=== PATIENT | female | born 1960 | race Caucasian/White ===

== ENCOUNTER 2022-01-04 22:28 | Emergency (ER) | payer OTHER, SELFPAY ==
[2022-01-04 22:50] VITALS: BP 113/63; PULSE 78; RESP 18; TEMP 36.1; O2SAT 100
--- NOTE | 2022-01-05 00:09 | ED.EXTPRO ---
HPI - Extremity Problem General Chief complaint: Extremity Problem,Nontraumatic Stated complaint: Black toes Time Seen by Provider: 01/04/22 23:49 History of Present Illness HPI Narrative: Patient is a 61-year-old female complaining of discoloration of her right toe x1 month. Patient denies any pain. Patient denies any injury to the area. Patient denies any calf pain or tenderness. Patient denies any fever or chills. Patient is not a diabetic. Patient is a smoker. Related Data Home Medications Medication Instructions Recorded Confirmed alprazolam 1 mg tablet 1 mg PO BID 06/22/21 06/22/21 escitalopram oxalate 20 mg tablet See Rx Instructions .Route .COMPLEX 06/22/21 06/22/21 Allergies Allergy/AdvReac Type Severity Reaction Status Date / Time No Known Allergies Allergy Verified 08/15/21 10:55 Review of Systems Review of Systems: Per HPI All systems reviewed & are unremarkable except as noted in HPI and below PMFSH Past Medical History Medical History Chicken pox Diarrhea History of miscarriage Pneumonia Stomach pain Vomiting Family History Family History Father , 60 Bone cancer Mother , 76 Emphysema lung Cancer Sibling , 65 Blood disease Factor 5 Leiden mutation, heterozygous Social History Social History Social History: Patient does not drink caffeine. 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 [employer] Gender identity (if verbalized by the patient): Female Sexual Orientation (if Verbalized by the Patient): Straight or Heterosexual Exam Const: General: cooperative, healthy appearing, comfortable, no acute distress, well developed, alert and awake; No confusion Orientation/consciousness: oriented to person, oriented to place, oriented to time, patient oriented x3 and No confusion Limitations: no limitations HENMT: Head: normal to inspection, normocephalic and atraumatic Ears: hearing grossly normal bilaterally, TM normal on the right and TM normal on the left General nose exam: Normal external nose present, Normal nares present and No nasal discharge present Face and sinus: normal facial exam Mouth: Yes Normal oral and palatal mucosa present, Yes lip normal, Yes tongue normal and Yes oropharynx normal Throat: posterior oropharynx normal, tonsils normal and uvula midline Eyes: General: appearance normal, both eyes and all related structures Pupils: Equal, round and reactive pupils present EOM: EOMs intact bilaterally Neck: Neck: normal visual inspection, full ROM, no lymphadenopathy and no meningeal signs Chest: Chest palpation & inspection: normal inspection of the chest Resp: Effort & Inspection: normal respiratory effort, able to speak in complete sentences, no respiratory distress and not tachypneic Auscultation: clear to auscultation bilaterally, no crackles, no rales, no rhonchi and no wheezes Cardio: Rate: regular rate Rhythm: regular rhythm GI: Inspection: normal to inspection GI Palp: No abdominal tenderness, Yes Soft to palpation, No Tenderness to palpation present (GI), No Guarding due to palpation present (GI), No Rigid due to palpation and No Rebound tenderness present Auscultation: normal bowel sounds : General: Yes no CVA tenderness Back/Spine/Pelvis: Back: no CVA tenderness Skin: General skin exam: normal color, no rashes or lesions noted, elasticity normal and turgor normal Neuro: General: oriented to person, oriente
== END 2022-01-05 00:25 | disposition home or self-care (01) ==
PROVIDERS: Emergency Provider Emergency Medicine; PCP Emergency Medicine
DX: I73.1 Thromboangiitis obliterans [Buerger's disease] (principal); Z87.01 Personal history of pneumonia (recurrent); F17.210 Nicotine dependence, cigarettes, uncomplicated
CPT/HCPCS: 99281

== ENCOUNTER 2022-01-20 18:38 | Emergency (ER) | payer OTHER, SELFPAY ==
[2022-01-20 18:39] VITALS: BP 132/95; PULSE 91; RESP 16; TEMP 36.6; O2SAT 99
[2022-01-20 18:57] LABS: Basophils Percent Auto 0.4 % (0.2-1.2); Eosinophils Absolute Auto 0.1 K/mm3 (0-0.3); Eosinophils Percent Auto 0.8 % (0-4.4); Hematocrit 43.8 % (37.0-47.0); Hemoglobin 14.6 g/dL (12.0-15.0); Immature Granulocyte Absolute 0.05 K/mm3 (0.00-0.031); Immature Granulocyte Percent A 0.5 % (0-0.5); Lymphocytes Absolute Auto 2.51 K/mm3 (0.9-3.2); Lymphocytes Percent Auto 24.1 % (18.3-44.2); Mean Corpuscular HGB Conc 33.3 g/dl (32-36); Mean Corpuscular Hemoglobin 30.7 pg (26-34); Mean Corpuscular Volume 92.2 fl (80-100); Mean Platelet Volume 9.1 fl (7.4-10.4); Monocytes Absolute Auto 0.7 K/mm3 (0.1-0.6); Monocytes Percent Auto 6.7 % (2.6-8.5); Neutrophils Percent Auto 67.5 % (45.5-73.1); Platelet Count Result 245 k/mm3 (150-375); Red Blood Count 4.75 M/mm3 (4.2-5.4); Red Cell Distribution Width 13.4 % (11.5-14.5); White Blood Count 10.4 K/mm3 (4.5-10.0)
[2022-01-20 19:07] LABS: Alanine Aminotransferase 15 U/L (6-35); Albumin Level 3.8 g/dL (3.5-5.1); Alkaline Phosphatase 80 U/L (38-126); Anion Gap 5 mmol/L (8-16); Aspartate Amino Transferase 19 U/L (14-36); Bilirubin,Total 0.5 mg/dL (0.2-1.3); Blood Urea Nitrogen 13 mg/dL (7-17); Calcium 8.5 mg/dL (8.4-10.2); Carbon Dioxide 24 mmol/L (22-30); Chloride 109 mmol/L (98-107); Estimated CRCL calculation 62 ml/min; Estimated Glomerular Filt Rate > 60; Glucose 108 mg/dL (65-110); Lipase 35 U/L (23-300); Potassium 3.7 mmol/L (3.4-5.0); Sodium 138 mmol/L (137-145)
[2022-01-20 20:57] VITALS: PULSE 90; RESP 15; O2SAT 94
[2022-01-20 21:00] VITALS: PULSE 83; RESP 13; O2SAT 97
--- NOTE | 2022-01-20 21:00 | ED.NAVMDI ---
HPI - Nausea/Vomiting/Diarrhea General Chief complaint: Nausea/Vomiting/Diarrhea Stated complaint: N/V Time Seen by Provider: 01/20/22 20:52 History of Present Illness HPI Narrative: 61-year-old female presents to the emergency room complaints of nausea and vomiting that began this morning. Patient states that emesis has been nonbloody and nonbilious. Patient states that she gets an occasional abdominal cramp prior to vomiting. Also complains of generalized body aches and headache. Denies diarrhea or constipation. Denies fever Related Data Home Medications Medication Instructions Recorded Confirmed alprazolam 1 mg tablet 1 mg PO BID 06/22/21 06/22/21 escitalopram oxalate 20 mg tablet See Rx Instructions .Route .COMPLEX 06/22/21 06/22/21 Allergies Allergy/AdvReac Type Severity Reaction Status Date / Time No Known Allergies Allergy Verified 08/15/21 10:55 Review of Systems Review of Systems: CONSTITUTIONAL: Denies fever, chills, or sweats. EYES: Denies visual changes, redness, or discharge. ENT: Denies rhinorrhea, congestion, sore throat, or otalgia. CARDIOVASCULAR: Denies chest pain, palpitations, or edema. RESPIRATORY: Denies cough or dyspnea. GASTROINTESTINAL: Reports nausea and vomiting GENITOURINARY: Denies dysuria or hematuria. SKIN: Denies rash or itching. MUSCULOSKELETAL: Denies back pain, joint pain, or myalgia. NEUROLOGIC: Denies headache, numbness, dizziness, or weakness. PSYCHIATRIC: Denies anxiety or depression. [facility] Past Medical History Medical History Chicken pox Diarrhea History of miscarriage Pneumonia Stomach pain Vomiting Family History Family History Father , 60 Bone cancer Mother , 76 Emphysema lung Cancer Sibling , 65 Blood disease Factor 5 Leiden mutation, heterozygous Social History Social History Social History: Patient does not drink caffeine. 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 HEAD: Normocephalic, atraumatic. EYES: PERRLA and EOMI. CHEST: Clear to auscultation. No respiratory distress. No wheezes rales or rhonchi HEART: Regular rate and rhythm. No murmur heard. Normal peripheral pulses. ABDOMEN: Soft, nontender, nondistended, normal active bowel sounds. EXTREMITIES: Normal range of motion. No edema. SKIN: Warm, dry, no rash. NEURO: No focal deficits. Alert and oriented x3. PSYCH: Normal mood and affect. Course Vital Signs Vital signs: Vital Signs Temperature 36.6 C 01/20/22 18:39 Pulse Rate 91 01/20/22 18:39 Respiratory Rate 16 01/20/22 18:39 Blood Pressure 132/95 H 01/20/22 18:39 Pulse Oximetry 99 01/20/22 18:39 Oxygen Delivery Room Air 01/20/22 18:39 Temperature 36.6 C 01/20/22 18:39 Pulse Rate 91 01/20/22 18:39 Respiratory Rate 16 01/20/22 18:39 Blood Pressure 132/95 H 01/20/22 18:39 Pulse Oximetry 99 01/20/22 18:39 Oxygen Delivery Room Air 01/20/22 18:39 MDM - Nausea/Vomiting/Diarrhea MDM Narrative Medical decision making narrative: 61-year-old female presented the ER complaints of nausea and vomiting likely secondary to benign infectious cause. No signs of DKA in her labs. CMP normal electrolytes no signs of dehydration or ARIEL.
[2022-01-20 21:02] VITALS: BP 133/66; PULSE 82; RESP 11; O2SAT 96
[2022-01-20] MEDS: DICYCLOMINE HCL INJ 20 MG/2 ML VIAL IM (21:26)
[2022-01-20] MEDS: METOCLOPRAMIDE HCL INJ 10 MG/2 ML VIAL IV PUSH (21:26)
[2022-01-20] MEDS: SODIUM CHLORIDE 0.9% IV 1,000 ML 999 ML IV CONT (21:26)
[2022-01-20] MEDS: diphenhydrAMINE HCl INJ 50 MG/ML VIAL 12.5 MG IV PUSH (21:27)
[2022-01-20 22:00] VITALS: BP 118/74; PULSE 80; RESP 14; TEMP 36.8; O2SAT 98
[2022-01-20 22:13] LABS: Appearance Urine Clear (Clear); Bilirubin Urine 1+ (Negative); Blood Urine 1+ (Negative); Color Urine Yellow (Yellow); Glucose Urine UA Negative (Negative); Ketones Urine 1+ mg/dL (Negative); Leukocyte Esterase Ur Negative LEU/UL (Negative); Nitrate Urine Negative (Negative); Protein Urine Negative (Negative); Urobilinogen Urine 0.2 mg/dL (<2.0); pH Urine 6.5 (5.0-9.0)
[2022-01-20 22:16] LABS: Bacteria Urine Trace /hpf; Mucus Urine Rare /lpf; Squamous Epithelial Cell Urine Few /hpf (Few); WBC Urine 0-3 /hpf
[2022-01-20 22:17] LABS: Add Urine Microscopic? YES
== END 2022-01-20 22:36 | disposition home or self-care (01) ==
PROVIDERS: Emergency Medicine; Emergency Provider Nurse Practitioner Family; PCP Emergency Medicine
DX: K29.70 Gastritis, unspecified, without bleeding (principal); A05.9 Bacterial foodborne intoxication, unspecified; Z87.01 Personal history of pneumonia (recurrent); F17.210 Nicotine dependence, cigarettes, uncomplicated
CPT/HCPCS: 36415; 80053; 81001; 83690; 85025; 96361; 96372; 96374; 96375; 99284; J0500; J1200; J2765; J7030

== ENCOUNTER 2022-02-15 14:49 | Outpatient (CLI) | payer OTHER, SELFPAY ==
--- NOTE | ~2022-02-15 | US_ITS ---
EXAMINATION: US art doppler w press LE BI DATE: 02/15/2022 15:33 INDICATION: Peripheral vascular disease TECHNIQUE: Segmental pressures and plethysmographic and Doppler waveforms of the brachial and lower e xtremity arteries were obtained. COMPARISON: None. FINDINGS: Right and left brachial artery pressures of 144 mm Hg and 140 mm Hg, respectively, are concordant (no rmal difference <= 30 mmHg). The right and left high-thigh pressure indices are 1.19 and 1.15, respec tively (normal > 1.2). The right ankle-brachial index (JAVED) is 1.14 (normal >= 0.9-1). The right great toe-brachial index (T BI) is 0.42 (normal >= 0.6-0.8). The right lower extremity segmental pressure gradients are borderlin e increased between the right dorsalis pedis artery and the right posterior tibial artery (normal gra dients <= 20-30 mmHg between adjacent levels on the same leg or the same levels on the two legs). Art erial waveforms are triphasic at the right common femoral and superficial femoral arteries and biphas ic in the right popliteal, posterior tibial and dorsalis pedis arteries with brisk systolic upstrokes throughout. The left JAVED is 1.10. The left TBI is 0.51. The left lower extremity segmental pressure gradients are borderline increased between the left dorsalis pedis artery and both the left [id number] poplite al artery and left posterior tibial artery. Arterial waveforms are triphasic at the left common femor al and superficial femoral arteries and biphasic in the left popliteal, posterior tibial and dorsalis pedis arteries with brisk systolic upstrokes throughout. IMPRESSION: 1. Mild arterial occlusive disease to the bilateral lower limbs with normal bilateral ABIs but mildly decreased bilateral TBIs. Reviewed, dictated and finalized at location A. IMPRESSION: 1. Mild arterial occlusive disease to the bilateral lower limbs with normal shreyas ateral ABIs but mildly decreased bilateral TBIs.
== END 2022-02-15 14:50 | disposition home or self-care (01) ==
PROVIDERS: PCP Emergency Medicine; Visit Provider Emergency Medicine
DX: I73.9 Peripheral vascular disease, unspecified (principal)
CPT/HCPCS: 93923

== ENCOUNTER 2022-02-22 07:38 | Outpatient (CLI) | payer OTHER, SELFPAY ==
--- NOTE | ~2022-02-22 | CT_ITS ---
EXAMINATION: CT abdomen pelvis w con DATE: 02/22/2022 08:01 INDICATION: Epigastric abdominal pain. Nausea and vomiting. TECHNIQUE: Computed tomography (CT) of the abdomen and pelvis was performed with 100 CC Omnipaque 300 intravenous contrast. Automated exposure control and iterative reconstruction technique were employe d. Exam dose: 588.21 mGy-cm total exam DLP. COMPARISON: 11/29/2018 CT abdomen pelvis FINDINGS: Posterior basilar right lower lobe calcified pulmonary granuloma. The lung bases are clear of infiltrate or consolidation. Normal heart size. No pericardial or pleural effusion. Diffuse hepatic steatosis. No hepatic space-occupying mass lesion. The gallbladder is present. No gal lbladder wall thickening or pericholecystic fluid or fat stranding. No bile duct dilatation. No pancreatic mass lesion, calcification or ductal dilatation. Normal morphology of the right adrenal gland. Asymmetric enlargement of the left adrenal gland which may be due to adrenal hypertrophy and/or small adenoma(s). Approximately 2 cm upper pole right renal cyst. No other renal space occupying mass lesion is detecte d. No urinary tract calculus or hydroureteronephrosis. The urinary bladder is unremarkable. There is atherosclerotic calcification but normal caliber of the abdominal aorta and iliac and femora l arteries. There is a 2.3 x 3 cm left adnexal mass with mixed soft tissue and fat density, likely a dermoid. Otherwise no intraperitoneal or retroperitoneal or pelvic mass lesion or adenopathy or ascites is not ed.. Normal appendix. Mild sigmoid colon diverticulosis; no evidence of diverticulitis. No bowel obstructi on or intraperitoneal free air. Small fat-containing umbilical hernia. Severe degenerative disc disease with mild retrolisthesis at the interspace between the lowermost fun ctional lumbar vertebra and a transitional lumbosacral vertebra. IMPRESSION: Hepatic steatosis Asymmetric left adrenal hypertrophy and/or small adenoma(s) 2 cm right renal cyst 2.3 x 3 cm probable left dermoid Mild sigmoid colon diverticulosis; no evidence of diverticulitis Normal appendix Reviewed, dictated and finalized at [facility]. Reviewed, dictated and finalized at location A.
[2022-02-22 07:54] LABS: Estimated Glomerular Filt Rate > 60
== END 2022-02-22 07:39 | disposition home or self-care (01) ==
PROVIDERS: PCP Emergency Medicine; Visit Provider Emergency Medicine
DX: R10.9 Unspecified abdominal pain (principal); K76.0 Fatty (change of) liver, not elsewhere classified; R93.422 Abnormal radiologic findings on diagnostic imaging of left kidney; N28.1 Cyst of kidney, acquired; K57.90 Diverticulosis of intestine, part unspecified, without perforation or abscess without bleeding
CPT/HCPCS: 74177; Q9967

== ENCOUNTER 2023-08-15 17:45 | Emergency (ER) | payer OTHER, SELFPAY ==
--- NOTE | ~2023-08-15 | XR_ITS ---
EXAMINATION: XR humerus RT DATE: 08/15/2023 19:35 INDICATION: Right upper arm pain. TECHNIQUE: 2 views of right humerus were obtained. COMPARISON: None. FINDINGS: Bone alignment is normal. No fracture. There is mild osteoarthritis of acromioclavicular jeanie int. IMPRESSION: 1. No fracture. Reviewed, dictated and finalized at location E. CTOR OF RESTAURANTS IMPRESSION: 1. No fracture.
--- NOTE | ~2023-08-15 | XR_ITS ---
EXAMINATION: XR hip LT min 2V DATE: 08/15/2023 19:35 INDICATION: Left hip pain. TECHNIQUE: 2 views of left hip were obtained. COMPARISON: None. FINDINGS: Bone alignment is normal. No fracture. There is mild left hip osteoarthritis. IMPRESSION: 1. Mild left hip osteoarthritis. Reviewed, dictated and finalized at location E. ER OPERATOR
--- NOTE | ~2023-08-15 | XR_ITS ---
EXAMINATION: XR forearm RT 2V DATE: 08/15/2023 19:35 INDICATION: Right forearm pain. TECHNIQUE: 2 views of right forearm were obtained. COMPARISON: None. FINDINGS: Bone alignment is normal. No fracture. Joint spaces are normal. There is an enthesophyte at lateral humeral epicondyle. No elbow joint effusion. IMPRESSION: 1. No fracture. Reviewed, dictated and finalized at location E. KING MACHINE OPERATOR IMPRESSION: 1. No fracture.
--- NOTE | ~2023-08-15 | XR_ITS ---
EXAMINATION: XR hand RT min 3V DATE: 08/15/2023 19:35 INDICATION: Right hand pain. TECHNIQUE: 3 views of right hand were obtained. COMPARISON: None. FINDINGS: Bone alignment is normal. No fracture. There is mild osteoarthritis of triscaphe joint and third and fifth distal interphalangeal joints. IMPRESSION: 1. Mild polyarticular osteoarthritis. Reviewed, dictated and finalized at location E. LASS LENS GENERATOR
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
--- NOTE | ~2023-08-15 | XR_ITS ---
EXAMINATION: XR humerus LT DATE: 08/15/2023 19:35 INDICATION: Left upper arm pain. TECHNIQUE: 2 views of left humerus were obtained. COMPARISON: None. FINDINGS: Bone alignment is normal. No fracture. Joint spaces are normal. IMPRESSION: 1. No fracture. Reviewed, dictated and finalized at location E. ODIAL AIDE IMPRESSION: 1. No fracture.
--- NOTE | ~2023-08-15 | CT_ITS ---
EXAMINATION: CT chest abdomen pelvis w con DATE: 08/15/2023 19:48 INDICATION: Chest and abdominal injury. TECHNIQUE: Computed tomography (CT) of the chest, abdomen, and pelvis was performed with 100 mL Omnip aque 350 intravenous contrast. Automated exposure control and iterative reconstruction technique were employed. The dose-length product was 800.93 mGy-cm. COMPARISON: CT abdomen and pelvis 02/22/2022 FINDINGS: CHEST CT: There is mild emphysema. There is mild atelectasis bilaterally. No pleural effusion. The heart size i s normal. No pericardial effusion. There is mild thoracic spondylosis. ABDOMEN/PELVIS CT: The liver is normal. There is a gallstone in the gallbladder, which is normal in size. The spleen, pa ncreas, adrenal glands, and left kidney are normal. There is a 2.0 cm cyst in right kidney. There is calcified atherosclerosis of the aorta and many of the other arteries. There is diverticulosis of the colon without evidence of diverticulitis. The appendix is normal. There are no dilated loops of vania l. There are no pathologically enlarged lymph nodes. There is no free intraperitoneal fluid. There is a 2.7 cm mass in left ovary containing fat, consistent with a dermoid. There is severe lumbar spondy losis. IMPRESSION: 1. No posttraumatic findings. Reviewed, dictated and finalized at location E. WARE ENGINEER INTERN
--- NOTE | ~2023-08-15 | XR_ITS ---
EXAMINATION: XR wrist LT min 3V DATE: 08/15/2023 19:35 INDICATION: Left wrist pain. TECHNIQUE: 4 views of left wrist were obtained. COMPARISON: None. FINDINGS: Bone alignment is normal. No fracture. There is mild osteoarthritis of third metacarpophala ngeal joint and first interphalangeal joint. IMPRESSION: 1. Mild polyarticular osteoarthritis. Reviewed, dictated and finalized at location E. HOOKER
--- NOTE | ~2023-08-15 | CT_ITS ---
EXAMINATION: CT brain wo con DATE: 08/15/2023 19:39 INDICATION: Head injury. TECHNIQUE: Computed tomography (CT) of the head was performed without intravenous contrast. The mA wa s adjusted according to patient size. Iterative reconstruction technique was employed. The dose-lengt h product was 605.33 mGy-cm. COMPARISON: None. FINDINGS: There are scattered areas of low attenuation in the cerebral white matter. There is no intr acranial hemorrhage, acute infarction, or abnormal intracranial mass lesion. The ventricles are lucio l in size. The paranasal sinuses are clear. The mastoid air cells are normal. The orbits are normal. IMPRESSION: 1. Moderate nonspecific cerebral white matter disease, which likely represents chronic small vessel i schemic disease. Reviewed, dictated and finalized at location E. SITIONAL CARE NURSE IMPRESSION: 1. Moderate nonspecific cerebral white matter disease, which likely represents chronic small vessel ischemic disease.
--- NOTE | ~2023-08-15 | XR_ITS ---
EXAMINATION: XR foot RT min 3V DATE: 08/15/2023 19:35 INDICATION: Right foot pain. TECHNIQUE: 4 views of right foot were obtained. COMPARISON: None. 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 There is mild hallux valgus. No fr acture. There is an erosion of the head of fifth metatarsal. There is an enthesophyte at posterior as pect of calcaneal tuberosity. IMPRESSION: 1. Erosions of head of second metatarsal, which may be osteomyelitis or a chronic finding. Comparison with prior imaging is recommended. Reviewed, dictated and finalized at location E. DE SALES IMPRESSION: 1. Erosions of head of second metatarsal, which may be osteomyelitis or a chron ic finding. Comparison with prior imaging is recommended.
[2023-08-15 17:48] VITALS: BP 144/84; PULSE 108; RESP 18; TEMP 36.5; O2SAT 98
--- NOTE | 2023-08-15 18:17 | ECG_ITS ---
Measurements Intervals [place] Rate: 95 P: 61 W[place]: 166 QRS: 22 QRSD: 82 T: 37 QT: 284 QTc: 358 Interpretive Statements SINUS RHYTHM ATRIAL PREMATURE COMPLEXES RSR' IN V1 OR V2, PROBABLY NORMAL VARIANT NONSPECIFIC T-WAVE ABNORMALITY- INF/LAT LEADS BASELINE ARTIFACT- I, III, AVL BORDERLINE ECG COMPARED TO ECG 04/07/2019 11:54:11 NO SIGNIFICANT CHANGES Electronically Signed On 08-15-2023 18:58:08 GRANITE COUNTERTOP INSTALLER by Jae Simpson D.O.
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
[2023-08-15 18:50] LABS: Basophils Percent Auto 0.4 % (0.2-1.2); Eosinophils Percent Auto 0.3 % (0-4.4); Hematocrit 42.9 % (37.0-47.0); Hemoglobin 13.4 g/dL (12.0-15.0); Immature Granulocyte Absolute 0.04 K/mm3 (0.00-0.031); Immature Granulocyte Percent A 0.4 % (0-0.5); Lymphocytes Absolute Auto 1.64 K/mm3 (0.9-3.2); Lymphocytes Percent Auto 17.4 % (18.3-44.2); Mean Corpuscular HGB Conc 31.2 g/dl (32-36); Mean Corpuscular Hemoglobin 29.2 pg (26-34); Mean Corpuscular Volume 93.5 fl (80-100); Mean Platelet Volume 9.4 fl (7.4-10.4); Monocytes Absolute Auto 0.5 K/mm3 (0.1-0.6); Monocytes Percent Auto 4.8 % (2.6-8.5); Neutrophils Absolute Auto 7.2 K/mm3 (1.3-6.7); Neutrophils Percent Auto 76.7 % (45.5-73.1); Platelet Count Result 248 k/mm3 (150-375); Red Blood Count 4.59 M/mm3 (4.2-5.4); Red Cell Distribution Width 14.4 % (11.5-14.5); White Blood Count 9.4 K/mm3 (4.5-10.0)
[2023-08-15 19:19] LABS: Alanine Aminotransferase 17 U/L (6-35); Alkaline Phosphatase 69 U/L (38-126); Anion Gap 7 mmol/L (8-16); Aspartate Amino Transferase 27 U/L (14-36); Bilirubin,Total 0.5 mg/dL (0.2-1.3); Blood Urea Nitrogen 12 mg/dL (7-17); Carbon Dioxide 23 mmol/L (22-30); Chloride 110 mmol/L (98-107); Estimated CRCL calculation 56 ml/min; Estimated Glomerular Filt Rate > 60; Glucose 88 mg/dL (65-110); Potassium 3.9 mmol/L (3.4-5.0); Sodium 140 mmol/L (137-145)
[2023-08-15] MEDS: ACETAMINOPHEN 500 MG TABLET 1000 MG PO (20:49)
[2023-08-15 20:51] VITALS: BP 138/76; PULSE 86; RESP 16; TEMP 36.7; O2SAT 97
== END 2023-08-15 20:52 | disposition home or self-care (01) ==
PROVIDERS: Emergency Provider Physician Assistant; PCP Emergency Medicine
DX: S40.022A Contusion of left upper arm, initial encounter (principal); S40.021A Contusion of right upper arm, initial encounter; S50.11XA Contusion of right forearm, initial encounter; S60.221A Contusion of right hand, initial encounter; S90.31XA Contusion of right foot, initial encounter; S70.02XA Contusion of left hip, initial encounter; S70.12XA Contusion of left thigh, initial encounter; F17.210 Nicotine dependence, cigarettes, uncomplicated; Z87.01 Personal history of pneumonia (recurrent); Z79.02 Long term (current) use of antithrombotics/antiplatelets; I49.1 Atrial premature depolarization; R94.31 Abnormal electrocardiogram [ECG] [EKG]; M19.041 Primary osteoarthritis, right hand; M19.031 Primary osteoarthritis, right wrist; M16.12 Unilateral primary osteoarthritis, left hip; M19.032 Primary osteoarthritis, left wrist; R90.82 White matter disease, unspecified; M47.812 Spondylosis without myelopathy or radiculopathy, cervical region; Y04.2XXA Assault by strike against or bumped into by another person, initial encounter
CPT/HCPCS: 36415; 70450; 71260; 72125; 73060; 73090; 73110; 73130; 73502; 73630; 74177; 80053; 85025; 85610; 85730; 93005; 99284; A9270; Q9967

== ENCOUNTER 2024-10-27 13:32 | Emergency (ER) | payer MEDICARE, MEDICAID, SELFPAY ==
--- NOTE | ~2024-10-27 | XR_ITS ---
XR chest 2V Ordering provider: Mercedes Michele APRN History: 64 years Female with . cough x 5 days HX COPD . Comparison: April 07, 2019 FINDINGS: MEDIASTINUM: The cardiac silhouette is not enlarged. LUNGS: No effusions or pneumothorax. Opacification the left lung bases suggestive of atelectasis vers us pneumonia. OTHER: No free air under the diaphragm. IMPRESSION: Left basal pneumonia. Reviewed, dictated and finalized at location A. IMPRESSION: Left basal pneumonia.
--- NOTE | 2024-10-27 13:42 | ED.URI ---
HPI - URI/Sore Throat General Chief Complaint: Upper Respiratory Infection Stated Complaint: cough Time Seen by Provider: 10/27/24 13:43 Source: patient, RN notes reviewed and old records reviewed Mode of arrival: ambulatory Limitations: no limitations History of Present Illness HPI Narrative: 64-year-old female presents to the [facility] with concerns that she has pneumonia. Patient with a history of COPD. States that she has had 3 day history of cough, shortness of breath. Body aches as well as feeling foggy. Patient reports that she did use her nebulizer last night. No other treatment prior to arrival Onset (ago): day(s) (3) Related Data Home Medications ?Medication ?Instructions ?Recorded ?Confirmed ?Last Taken ?Type alprazolam 1 mg tablet 1 mg PO BID 06/22/21 12/26/23 Unknown History escitalopram oxalate 20 mg tablet See Rx Instructions .Route .COMPLEX 12/26/23 12/26/23 Unknown History famotidine 20 mg tablet 20 mg PO BID 12/26/23 12/26/23 Unknown History omega 6-uqw-ftz-fish oil 120 1 cap PO DAILY 12/26/23 12/26/23 Unknown History mg-180 mg-500 mg capsule (Fish Oil) rosuvastatin 5 mg tablet 5 mg PO DAILY 12/26/23 12/26/23 Unknown History venlafaxine 75 mg tablet 75 mg PO DAILY 12/26/23 12/26/23 Unknown History Allergies Allergy/AdvReac Type Severity Reaction Status Date / Time No Known Allergies Allergy Verified 10/27/24 13:34 Review of Systems Review of Systems: All systems reviewed & are unremarkable except as noted in HPI and below Constitutional: Constitutional: Reports as per HPI, Reports body ache(s), Reports chills and Reports fatigue ENT: Reports system reviewed and no additional complaints, except as documented Cardiovascular: Cardiovascular: Reports no additional cardiovascular complaints, Denies chest pain and Denies dyspnea Respiratory: Respiratory: Reports as per HPI, Denies chest congestion, Reports cough and Reports dyspnea Musculoskeletal: Musculoskeletal: Reports no additional musculoskeletal complaints Integumentary/Breasts: Skin/Breast: Reports system reviewed and no additional complaints, except as docu PMFSH Past Medical History Medical History Stomach pain Vomiting Diarrhea Pneumonia History of miscarriage Chicken pox Family History Family History Father , 60 Bone cancer Mother , 76 Emphysema lung Cancer Sibling , 65 Blood disease Factor 5 Leiden mutation, heterozygous Social History Social History Social History: Patient does not drink caffeine. Smoking packs per day: 1 Smoking cigarettes per day: 20.0 Years smoked: 43 Smoking pack-years: 43.00 Smoking status: Current every day smoker Tobacco type: cigarettes Alcohol intake: never Substance use: never Substance use type: does not use Current Housing: Decline to Answer Concerned About Future Housing: Decline to Answer Difficulty Paying Gas/Electric Bills: Decline to Answer Difficulty Paying for Meds: Decline to Answer Currently Unemployed: Decline to Answer Education: Decline to Answer Difficulty w/ Childcare or Family Care: Decline to Answer Living arrangements: with family Additional living arrangements comments: Occupation/Education: occupation 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 There is no relevant family history pertinent to the patient complaint. Exam Const: General: cooperative, healthy appearing, comfortable, no acute distress, well developed, alert and well nourished Nutritional Appearance: well nourished Orientation/consciousness: patient oriented x3 Limitations: no limitations HENMT: Head: normal to inspection Ears: hearing grossly normal bilaterally, external ears normal, TM's normal bilaterally, EAC's normal, mastoids normal and no periauricular adenopathy Mouth: Yes Normal oral and palatal mucosa present, Yes lip normal, Yes tongue normal and Yes moist mucous membranes Throat: posterior oropharynx normal, uvula midline and no uvular edema Eyes: General: appearance normal, both eyes and all related structures Alignment and Position: alignment normal Neck: Neck: normal visual inspection, full ROM, no lymphadenopathy and no meningeal signs Chest: Chest palpation & inspection: normal inspection of the chest Resp: Effort & Inspection: normal respiratory effort and able to speak in complete sentences Auscultation: no crackles, no rales, no rhonchi and wheezes expiratory wheezes and scattered wheezes Cardio: Rate: regular rate Skin: General skin exam: normal color and no rashes or lesions noted Neuro: General: patient oriented x3, gait normal, moves all extremities and no meningeal signs Cognition (Neuro): normal cognition Speech: normal speech Gait exam (Neuro): Normal gait present Extrem: General: normal to inspection, full ROM, capillary refill normal and normal gait Psych: Appearance: grossly normal and well kempt Mental Status: mental status grossly normal Speech and movement: Normal speech and movement present and Clear speech present Affect: normal affect Attitude: cooperative Course Course Level of Care: Express Care Visit Vital Signs Vital signs: Vital Signs Temperature 98.0 F 10/27/24 13:46 Pulse Rate 99 10/27/24 13:46 Respiratory Rate 20 10/27/24 13:46 Blood Pressure 103/52 L 10/27/24 13:46 Pulse Oximetry 95 10/27/24 13:46 Oxygen Delivery Room Air 10/27/24 13:46 Temperature 98.0 F 10/27/24 13:46 Pulse Rate 108 H 10/27/24 14:18 Respiratory Rate 20 10/27/24 14:18 Blood Pressure 103/52 L 10/27/24 13:46 Pulse Oximetry 95 10/27/24 14:18 Oxygen Delivery Room Air 10/27/24 13:46 Reviewed MDM - URI/Sore Throat MDM Narrative Medical decision making narrative: Patient presents to the [facility] with concerns for pneumonia. Patient's x-ray does show pneumonia. Patient has a history of COPD. Discussed in great detail signs and symptoms to proceed to the emergency room versus treatment. Will prescribe both azithromycin and Augmentin. Encouraged patient to use her nebulizer every 4-5 hours and if she is having trouble catching her breath or develops chest pain she needs to go the emergency room. Patient verbalized understanding Discharge instructions reviewed with patient, as well as provided in writing per nursing staff. The instructions also include specific and strict return/GO TO THE ER as well as f/u information. All questions have been answered, and the patient deny any further questions with discharge and discharge plan. Some parts of this dictation were generated by voice recognition software and may contain typographical and/or grammatical inaccuracies. Differential Diagnosis Differential diagnosis: Likely upper respiratory infection, otitis media, sinusitis, viral infection, bronchitis, influenza and pharyngitis Lab Data Labs: Lab Results 10/27/24 Range/Units 14:08 POC Influenza A Ag Negative (Negative) POC Influenza B Ag Negative (Negative) POC SARS CoV-2 Ag Negative (Negative) Reviewed Imaging Data Radiologist's impression: XR chest 2V Ordering provider: Mercedes Michele APRN History: 64 years Female with . cough x 5 days HX COPD . Comparison: April 07, 2019 FINDINGS: MEDIASTINUM: The cardiac silhouette is not enlarged. LUNGS: No effusions or pneumothorax. Opacification the left lung bases suggestive of atelectasis versus pneumonia. OTHER: No free air under the diaphragm. IMPRESSION: Left basal pneumonia. Critical Care Time Critical Care Time Critical Care Time: No Discharge Plan Discharge Clinical Impression: History of COPD Pneumonia involving left lung Qualifiers: Pneumonia type: due to unspecified organism Patient Disposition: Home, Self-Care Condition: Stable Instructions: COPD (Chronic Obstructive Pulmonary Disease) (DC), Community Acquired Pneumonia (DC) Additional Instructions: Stop smoking Use your nebulizer every 4-5 hours while awake Take antibiotics as prescribed Follow-up with your primary care provider this week For new or worsening symptoms go directly to the nearest emergency room. If you develop chest pain or significant shortness of breath please call 911 and get to emergency room Patient Language: Ukrainian Prescriptions: New azithromycin 250 mg tablet See Rx Instructions PO .COMPLEX Qty: 6 0RF Rx Instructions: take 500 mg today (day 1), then 250 mg for 4 days (days 2-5) amoxicillin-pot clavulanate 875-125 mg tablet 1 tablet PO Q12H Qty: 20 0RF No Action alprazolam 1 mg tablet 1 mg PO BID escitalopram oxalate 20 mg tablet See Rx Instructions .ROUTE .COMPLEX Rx Instructions: TAKE 1 TABLET PO ONCE DAILY; famotidine 20 mg tablet 20 mg PO BID venlafaxine 75 mg tablet 75 mg PO DAILY rosuvastatin 5 mg tablet 5 mg PO DAILY Fish Oil 120-180-500 mg capsule 1 cap PO DAILY cyclobenzaprine 5 mg tablet 5 mg PO TID PRN (Reason: muscle spasm) Qty: 20 0RF pregabalin [Lyrica] 75 mg capsule 75 mg PO DAILY Qty: 30 2RF Follow-up/Referrals: PHYSICIAN,DIRECTOR NURSES' REGISTRY [Primary Care Provider] - Time of Disposition: 14:19
[2024-10-27 13:46] VITALS: BP 103/52; PULSE 99; RESP 20; TEMP 36.7; O2SAT 95
[2024-10-27] MEDS: IPRATROPIUM BR 0.02% INH SOLN 0.5 MG/2.5 ML VIAL INHALATION (13:58)
[2024-10-27] MEDS: ALBUTEROL SULFATE NEB 2.5 MG/3 ML INH INHALATION (13:59)
[2024-10-27 14:02] VITALS: PULSE 99; RESP 20; O2SAT 95
[2024-10-27 14:09] LABS: EDCOVIDSCREEN Negative (Negative); EDINFLUASCREEN Negative (Negative); EDINFLUBSCREEN Negative (Negative)
[2024-10-27 14:18] VITALS: PULSE 108; RESP 20; O2SAT 95
--- OUTSIDE RECORDS SUMMARY | 2024-10-27 16:08 | XMS_ITS | Clinical Summary ---
Author Organization [facility] Address [address] [place] [address] Care Team Providers Care Cell Maker Name Role Phone Nash Rosa MD Primary Care Provider [phone] Yojana VaughnNP Unavailable [phone] Surendra Ponce MD Unavailable Allergies No known active allergies Medications ondansetron 4 MG disintegrating tablet Take 1 tablet (4 mg total) by mouth every 8 (eight) hours as needed for Nausea. 20 tablet 03/24/20 21 Active clopidogrel (PLAVIX) 75 MG tablet Take 1 tablet (75 mg total) by mouth daily. 02/19/20 24 Active escitalopram (LEXAPRO) 20 MG tablet Take 1 tablet (20 mg total) by mouth daily. 02/20/20 24 Active meloxicam (MOBIC) 15 MG tablet Take 1 tablet (15 mg total) by mouth daily. 02/26/20 24 Active venlafaxine (EFFEXOR) 75 MG tablet Take 1 tablet (75 mg total) by mouth daily. 02/19/20 24 Active famotidine (PEPCID) 20 MG tablet Take 1 tablet (20 mg total) by mouth 2 (two) times daily. 02/19/20 24 Active rosuvastatin (CRESTOR) 5 MG tablet Take 1 tablet (5 mg total) by mouth daily. 02/26/20 24 Active ALPRAZolam (XANAX) 1 MG tablet Take 1 tablet (1 mg total) by mouth 2 (two) times daily as needed. 02/12/20 24 Active albuterol (ACCUNEB) 1.25 MG/3ML nebulizer solution Take 3 mLs (1.25 mg total) by nebulization every 6 (six) hours as needed for Wheezing. 720 mL 07/22/20 24 Active Social History Tobacco Use Types Packs/Day Years Used Date Smoking Tobacco: Every Day Cigarettes 1 57.2 Started: 1968 Smokeless Tobacco: Never Tobacco Cessation:Ready to Q uit: Not Asked; Counseling Given: Not Answered Alcohol Use Standard Drinks/Week Comments Not Currently 0 (1 standard drink = 0.6 oz pur e alcohol) Comments No Sex and Gender Information Value Date Recorded Sex Assigned at Not on file Legal Sex Female 5:04 PM CDT Gender Identity Not on file Sexual Orientation Not on file Last Filed Vital Signs Vital Sign Reading Time Taken Comments Blood Pressure 144/72 07/21/2024 10:22 PM CUPOLA TENDER Pulse 72 07/21/2024 10:22 PM CUPOLA TENDER Temperature 37.1 C (98.7 F) 07/21/2024 10:22 PM CUPOLA TENDER Respiratory Rate 18 07/21/2024 10:22 PM CUPOLA TENDER Oxygen Saturation 100% 07/21/2024 10:22 PM CUPOLA TENDER Inhaled Oxygen Concentration - - Weight 69.9 kg (154 lb) 07/21/2024 8:03 PM CUPOLA TENDER Height 170.2 cm (5' 7 ) 07/21/2024 8:03 PM CUPOLA TENDER Body Mass Index 24.12 07/21/2024 8:03 PM CUPOLA TENDER Plan of Treatment Health Maintenance Due Date Last Done Comments Colorectal Cancer Screening Colonoscopy (10 Years) 1959 Pneumococcal Vaccine: 65+ Ye ars (1 of 2 - PCV) 1965 Pneumococcal Vaccine: Pediat rics (0 to 5 Years) and At-Risk Patients (6 to 64 Years) (1 of 2 - PCV) 1965 Hepatitis C 1977 DTaP, Tdap and Td Vaccines ( 1 - Tdap) 1978 Mammogram Screening 1999 Lung Cancer Screening 2009 Zoster Vaccines (1 of 2) 2009 COVID-19 Vaccine ( - 2023-2 5 season) 2024 Influenza Adult (#1) 2024 Dexa Scan (General) 2024 RSV Immunization or 60+ Years (1 - 1-dose 75+ series) 2034 Meningococcal B Vaccine Aged Out No l onger eligible based on patient's age to complete this topic Meningococcal Vaccine Aged Out No elia cristela eligible based on patient's age to complete this topic RSV Immunizations Under 20 Months Aged Out No longer eligible based on patient's age to complete this topic Insurance [place] Care Teams Cell Maker Relationship Specialty Start Date End Date Nash Rosa MD [address] [place] [address] PCP - General INTERNAL MEDICINE 03/09/24 Yojana Vaughn APNP [address] [place] [address] NURSE PRACTITIONER 03/09/24 Surendra Ponce MD [address] [facility] [address] [place] [id number] VASCULAR SURGERY 03/09/24
--- OUTSIDE RECORDS SUMMARY | 2024-10-27 16:08 | XMS_ITS | Clinical Summary ---
Author Organization [facility] [address] Address [address] [place] [id number] Care Team Providers Care Lease Picker Name Role Phone Nash Rosa MD Primary Care Provide r Allergies Active Allergy Reactions Criticality Noted Date Comments Tramadol Itching Low 02/22/2022 Vancomycin Itching Low 03/08/2022 Medications ALPRAZolam (XANAX) 1 mg tablet Take 1 tablet (1 mg total) by mouth 2 (two) times a day as needed 02/02/20 Active escitalopram (LEXAPRO) 20 mg tablet Take 20 mg by mouth daily 12/04/19 22 Active ondansetron ODT (ZOFRAN-ODT) 4 mg disintegrating tablet 01/22/20 Active aspirin 81 mg enteric coated tablet Take 1 tablet (81 mg total) by mouth daily Active naloxone (NARCAN) 4 mg/actuation spray,non-aerosol Administer 1 spray into affected nostril(s) as needed for opioid reversal or respiratory depression Call 911. Administer a single spray in one nostril. Repeat every 3 minutes as needed if no or minimal response. 1 each 03/02/20 Active Additional Information Patient not taking.Reported on 06/27/2022 sucralfate (CARAFATE) 1 gram tablet Take 1 tablet (1 g total) by mouth 4 (four) times a day (with meals and nightly) 120 tablet 03/11/[address] (PROTONIX) 40 mg EC tablet Take 1 tablet (40 mg total) by mouth 2 (two) times a day 60 tablet 03/11/20 22 Active HYDROcodone-acetam inophen (NORCO) 5-325 mg per tabletIndications: Pain Take 2 tablets by mouth every 6 (six) hours as needed for pain 30 tablet 03/15/20 22 Active Additional Information Patient not taking.Reported on 06/27/2022 clopidogreL (PLAVIX) 75 mg tablet Take 1 tablet (75 mg total) by mouth daily 90 tablet 3 09/14/19 23 Active venlafaxine (EFFEXOR) 75 mg tablet Take 1 tablet (75 mg total) by mouth daily 02/10/20 23 Active Active Problems Problem Noted Date Diagnosed Date Venous congestion 06/28/2022 Assessment & Plan (02/20/2023 12:07 PM CDT): Impression: Patient complains of discoloration to the right 1st and 3rd toes. Discoloration occurs by lower extremities are in dependent position and returns to pink in color when legs are elevated. Patient denies any pain to her feet or toes. Right 2nd toe amputation site remains healed. Plan: No surgical interventions are needed. Patient to follow-up as needed. Assessment & Plan (06/28/2022 2:42 PM SUPERVISOR COAL HANDLING): Impression: Patient complains of discoloration to right 3rd toe. Bilateral ABIs to lower extremities are normal with triphasic waveforms. Discoloration occurs while lower extremities are in dependent position and return to pink in color when legs are elevated. Plan: No surgical intervention are needed. Mild malnutrition 03/08/2022 Gangrene of toe 03/07/2022 PAD (peripheral artery disease) 02/21/2022 Assessment & Plan (06/28/2022 2:41 PM SUPERVISOR COAL HANDLING): Impression: Patient complains of discoloration to her right 3rd toe as she voices concern as this was the symptoms she experiencing with her 2nd toe prior to her amputation. Patient denies any pain. Bilateral ABIs reveals triphasic waveforms. Patient reports compliance with taking dual anti-platelet therapy. Bilateral lower extremities are warm with palpable distal pulses. Plan: No concern for arterial issues as she has normal JAVED's. Discoloration is likely secondary to venous congestion. Patient to follow-up on an as-needed basis. 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 Previous CTA with runoff shows there was no flow-limiting disease in either extremity. However on exam distal pulses are not palpable but signals are obtained. The 3rd toe is slightly discolored with a 1 mm sized blister. No signs of surrounding edema or erythema or signs of infection. Distal pulses are not palpable however signals are obtained. Lower extremities and feet are warm to touch. Plan: Utilize Neosporin and a Band-Aid. Obtain lower extremity arterial Doppler any BI return in 2 weeks for a wound check and discussed results. Gangrene of toe of right foot 02/21/2022 Assessment & Plan (06/09/2022 11:38 AM CDT): History of right 2nd toe amputation on 03/09/2022. The site has healed. There is small amount of as sharp but otherwise the side is healing well. She states that over the past couple of weeks she has noticed some discoloration to her 3rd toe and has a small spot to the side of her toenail. Denies any pain to the site denies any pain to the toes. Plan: Use Neosporin and a Band-Aid to the site obtain lower extremity arterial Doppler/JAVED study. Return within 2 weeks to discuss the results and for a wound recheck. Assessment & Plan (03/24/2022 11:20 AM CDT): Impression: Patient is status post right 2nd toe amputation due to ischemia with associated gangrene. Patient reports her discomfort has resolved. Surgical incision is healed with sutures intact. No concern for infection. Plan: Sutures removed. Patient to follow-up as needed. Surgical History Surgery Date Site/Laterality Comments NO PAST SURGERIES Medical History Medical History Date Comments No pertinent past medical history Family History Medical History Relation Name Comments Bone cancer Father Emphysema Mother Relation Name Status Comments Father Mother Social History Tobacco Use Types Packs/Day Years Used Date Smoking Tobacco: Every Day Tobacco Cessation:Ready to Q uit: Not Asked; Counseling Given: Not Answered Personal Safety Answer Date Recorded Getting School Help Needed Not on file 08/19 Comments No Sex and Gender Information Value Date Recorded Sex Assigned at Not on file Legal Sex Female 11:23 AM SUPERVISOR COAL HANDLING Gender Identity Not on file Sexual Orientation Not on file Obstetrics History Last Filed Vital Signs Vital Sign Reading Time Taken Comments Blood Pressure 114/70 02/20/2023 10:32 AM CDT Pulse 98 02/20/2023 10:32 AM CDT Temperature 36.8 C (98.3 F) 03/11/2022 3:00 AM CDT Respiratory Rate 18 03/11/2022 7:00 AM CDT Oxygen Saturation 96% 03/11/2022 7:00 AM CDT Inhaled Oxygen Concentration - - Weight 70.3 kg (155 lb) 02/20/2023 10:32 AM CDT Height 165.1 cm (5' 5 ) 02/20/2023 10:32 AM CDT Body Mass Index 25.79 02/20/2023 10:32 AM CDT Plan of Treatment Health Maintenance Due Date Last Done Comments Breast Cancer Screening-Mammogram 1959 Cervical Cancer Screening 1959 Colon Cancer Screening-Colonoscopy 1959 Depression Screening 1959 Hepatitis C Screening 1959 Osteoporosis Screening-Bone Density Scan 1959 DTaP/Tdap/Td Vaccine (1 - Tdap) 1970 Hepatitis B Screening 1977 Pneumococcal vaccine 65+ (1 of 2 - PCV) 1978 Zoster Vaccine (1 of 2) 2009 Fall Risk Assessment 03/11/2023 03/11/2022 Influenza Vaccine (#1) 2024 Well Visit 65+ 2024 Insurance [facility] Advance Directives For more information, please contact: [phone] * Full Code (Latest Code Status on File) Date Activated Date Inactivated Comments 03/07/2022 1:41 PM 03/11/2022 8:21 PM Care Teams Lease Picker Relationship Specialty Start Date End Date Nash Rosa MD [address] [place] [address] PCP - General Emergency Medicine 07/20/21
--- OUTSIDE RECORDS SUMMARY | 2024-10-27 16:08 | XMS_ITS | Referral Summary ---
Author Organization [facility] [address] Address [address] [place] [id number] Care Team Providers Care Historical Archeologist Name Role Phone Nash Rosa MD Primary [...] needed. Assessment & Plan (06/28/2022 2:42 PM INSTRUCTIONAL SERVICES SPECIALIST): Impression: Patient complains of discoloration to right 3rd toe. Bilateral ABIs to lower extremities are normal with triphasic waveforms. Discoloration occurs while lower extremities are in dependent position and return to pink in color when legs are elevated. Plan: No surgical intervention are needed. Mild malnutrition 03/08/2022 Gangrene of toe 03/07/2022 PAD (peripheral artery disease) 02/21/2022 Assessment & Plan (06/28/2022 2:41 PM INSTRUCTIONAL SERVICES SPECIALIST): Impression: Patient complains of discoloration to her [...] Sutures removed. Patient to follow-up as needed. Social History Tobacco Use Types Packs/Day Years Used Date Smoking Tobacco: Every Day Tobacco Cessation:Ready to Q uit: Not Asked; Counseling Given: Not Answered Personal Safety Answer Date Recorded Getting School Help Needed Not on file 08/19 Comments No Sex and Gender Information Value Date Recorded Sex Assigned at Not on file Legal Sex Female 11:23 AM INSTRUCTIONAL SERVICES SPECIALIST Gender Identity Not on file Sexual Orientation [...] 02/20/2023 10:32 AM CDT Plan of Treatment Not on file Insurance [facility] Advance Directives For more information, please contact: [phone] * Full Code (Latest Code Status on File) Date Activated Date Inactivated Comments 03/07/2022 1:41 PM 03/11/2022 8:21 PM Care Teams Historical Archeologist Relationship Specialty Start Date End Date Nash Rosa MD [address] [place] [address] PCP - General Emergency Medicine 07/20/21
--- OUTSIDE RECORDS SUMMARY | 2024-10-27 16:08 | XMS_ITS | Clinical Summary ---
Author Organization [facility] Address [address] [place] [address] Phone Care Team Providers Care Instructor Tap Dancing Name Role Phone Unavailable Primary Care Provider Unavailabl e Social History Tobacco Use Types Packs/Day Years Used Date Smoking Tobacco: Never Assessed Comments Unknown Sex and Gender Information Value Date Recorded Sex Assigned at Not on file Legal Sex Female 3:08 PM BEATER AND PULPER FEEDER Gender Identity Not on file Sexual Orientation Not on file Plan of Treatment Health Maintenance Due Date Last Done Comments DEXA Bone Density 1959 Hepatitis C Virus (HCV) Screening 1959 TdaP Immunization 1959 Pap Smear 1980 Cervical Cancer Screening (CCS) 1989 HPV/Cotest 1989 Colonoscopy 2004 Colorectal Cancer Screening 2004 Cologuard 2009 Immunochemical Fecal Occult Blood 2009 Mammogram 2009 Pneumococcal Immunization (5 0+ years) (1 of 1 - PCV) 2009 Zoster Immunization (1 of 2) 2009 Influenza Immunization (#1) 2024 SARS-COV-2 Immunization (2023-25 season) 2024 Respiratory Syncytial Virus (RSV) Immunization (Adult) (1 - 1-dose 75+ series) 2034 Hepatitis B Immunization Aged Out No longer eligible based on patient's age to complete this topic Meningococcal Immunization (ACWY) Aged Out No longer eligible based on patient's age to complete this topic Pneumococcal Immunization Combined Aged Out No longer eligible based on patient's age to complete this topic Rotavirus Immunization Aged Out No lo nger eligible based on patient's age to complete this topic
== END 2024-10-27 14:24 | disposition home or self-care (01) ==
PROVIDERS: Emergency Provider Nurse Practitioner
DX: J44.9 Chronic obstructive pulmonary disease, unspecified (principal); J18.9 Pneumonia, unspecified organism; Z20.822 Contact with and (suspected) exposure to COVID-19; F17.210 Nicotine dependence, cigarettes, uncomplicated
CPT/HCPCS: 71046; 87426; 87804; 99213; G0463